=== PATIENT | female | born 1990 | race American Indian/Alaskan Native ===

== ENCOUNTER 2021-03-20 17:39 | Emergency (ER) | payer OTHER ==
[2021-03-20] MEDS ORDERED: Acetaminophen 500 MG Tab PO ONE (18:05)
[2021-03-20] MEDS ORDERED: Lactated Ringers 1,000 ML IV ONE (18:43)
[2021-03-20] MEDS ORDERED: Lactated Ringers 1,000 ML IV SCH (20:15)
== END 2021-03-20 23:05 | disposition still patient (30) ==
LOC: FB.ED 17:39
DX: U07.1 COVID-19 (principal); R10.30 Lower abdominal pain, unspecified; Z20.822 Contact with and (suspected) exposure to COVID-19
CPT/HCPCS: 36415; 80048; 80076; 81001; 83690; 83735; 85027; 86140; 87635; 99284; A9270; J7120; U0002

== ENCOUNTER 2021-05-18 15:16 | Emergency (ER) | payer MEDICAID, OTHER | END 2021-05-18 16:00 | disposition home or self-care (01) | LOC: FB.ED 15:16 | DX: N76.2 Acute vulvitis (principal) | CPT/HCPCS: 99282; 99283 ==